=== PATIENT | female | born 1940 | race Two or more races ===

== ENCOUNTER → 2017-02-03 | Outpatient (CLI) | payer MEDICARE ==
--- NOTE | 2017-02-03 15:19 | Diagnostic Imaging Report ---
Indication: Dyspnea Comparison: None 2 views of the chest obtained. Findings: Cardiomediastinal silhouette and pulmonary vascularity are within normal limits for age. The diaphragmatic contour is smooth and costophrenic angles are sharp. No pleural effusions are identified. The bones are osteopenic. Impression: No acute disease
== END | disposition home or self-care (01) ==
LOC: RAD 13:41
DX: R06.02 Shortness of breath (principal); M85.80 Other specified disorders of bone density and structure, unspecified site
CPT/HCPCS: 71020